=== PATIENT | female | born 1955 | race Caucasian/White ===

== ENCOUNTER → 2017-05-05 | Outpatient (CLI) | payer MEDICARE, OTHER | END | disposition home or self-care (01) | LOC: CVU 09:16 | PROVIDERS: ATTEND Psychiatry & Neurology Neurology | DX: I65.23 Occlusion and stenosis of bilateral carotid arteries (principal); I63.9 Cerebral infarction, unspecified; E78.5 Hyperlipidemia, unspecified; Z79.02 Long term (current) use of antithrombotics/antiplatelets; Z87.891 Personal history of nicotine dependence | CPT/HCPCS: 93880 ==

== ENCOUNTER 2019-03-27 09:52 | Outpatient (CLI) | payer MEDICARE ==
[2019-06-03] MEDS ORDERED: TECFIDERA (13:11)
[2019-06-03] MEDS ORDERED: FLUO10CA7 PO (13:18)
[2019-06-03] MEDS ORDERED: [UNRECOGNIZED DRUG - OTHER] (13:18)
[2019-06-03] MEDS ORDERED: CLOP75TA52 PO (13:18)
[2019-06-03] MEDS ORDERED: SIMVASTATIN (13:18)
[2019-06-03] MEDS ORDERED: TOPI15CA10 PO (13:18)
[2019-06-03] MEDS ORDERED: OMEP20TA62 PO (18:31)
[2019-06-03] MEDS ORDERED: CHOL2000 PO (18:37)
== END 2019-03-27 23:59 | disposition home or self-care (01) ==
LOC: CFH 09:52
PROVIDERS: ATTEND Psychiatry & Neurology Neurology
DX: I65.23 Occlusion and stenosis of bilateral carotid arteries (principal); Z86.73 Personal history of transient ischemic attack (TIA), and cerebral infarction without residual deficits
CPT/HCPCS: 93880

== ENCOUNTER 2020-02-09 18:26 | Emergency (ER) | payer MEDICARE ==
[~2020-02-09] VITALS: Ht 167.6 cm; Wt 93.0 kg
[~2020-02-09 18:26] MED LIST: CHOL2000 PO; CLOP75TA52 PO; FLUO10CA14 PO; OMEP20TA62 PO; SIMVASTATIN; TECFIDERA; TOPI15CA10 PO; [UNRECOGNIZED DRUG - OTHER]
[2020-02-09 19:11] LABS: BASOPHILS # (AUTO) 0.02 x10^3/uL (0-0.1); BASOPHILS % (AUTO) 0 % (0-1); EOSINOPHILS # (AUTO) 0.12 x10^3/uL (0-0.4); EOSINOPHILS % (AUTO) 3 % (1-7); LYMPHOCYTES # (AUTO) 0.63 x10^3/uL (1-3.4); LYMPHOCYTES % (AUTO) 16 % (22-44); MD NO; MEAN CORPUSCULAR HEMOGLOBIN 29.8 pg (27.0-34.8); MEAN CORPUSCULAR HGB CONC 33.3 g/dL (32.4-35.8); MEAN CORPUSCULAR VOLUME 89.7 fL (80-100); MEAN PLATELET VOLUME 9.8 fL (7.4-10.4); MONOCYTES # (AUTO) 0.59 x10^3/uL (0.2-0.8); MONOCYTES % (AUTO) 15 % (2-9); NEUTROPHILS # (AUTO) 2.48 x10^3/uL (1.8-6.8); NEUTROPHILS % (AUTO) 65 % (42-75); PLATELET COUNT 209 x10^3/uL (130-400); RED BLOOD COUNT 4.65 x10^6/uL (3.82-5.3); RED CELL DISTRIBUTION WIDTH 14.4 % (9.6-15.2)
[2020-02-09 19:20] LABS: ALBUMIN 3.7 g/dL (3.4-5.0); ANION GAP 4 mmol/L (5-15); CALCIUM 8.7 mg/dL (8.5-10.1); CHLORIDE 111 mmol/L (98-107); CREATININE 0.84 mg/dL (0.55-1.02)
[2020-02-09 19:34] LABS: CLUE CELLS NONE SEEN (NONE SEEN)
[2020-02-09 19:38] LABS: WET PREP WBCS MANY (FEW)
--- NOTE | 2020-02-09 19:38 | NUR ---
PELVIC DONE PER DR. POLLOCK WITH THIS RN AT BEDSIDE. STRAIGHT PERFORMED UTILIZING STERILE TECHNIQUE. SPECIMENS SENT TO LAB.
[2020-02-09 19:48] LABS: MICROSCOPIC INDICATED
[2020-02-09] MEDS ORDERED: CEFDINIR 300 MG CAPSULE PO ONE (21:00)
[2020-02-09] MEDS ORDERED: CEFDINIR 300 MG CAPSULE ONE (21:25)
[2020-02-09 21:32] VITALS: BP 121/59
== END 2020-02-09 21:34 | disposition home or self-care (01) ==
LOC: ED 18:50
DX: N30.01 Acute cystitis with hematuria (principal); Z86.73 Personal history of transient ischemic attack (TIA), and cerebral infarction without residual deficits
CPT/HCPCS: 36415; 80048; 81001; 82040; 85025; 87077; 87086; 87186; 87210; 87808; 99283